=== PATIENT | female | born 1980 | race Caucasian/White ===

== ENCOUNTER 2021-07-11 14:43 | Outpatient (CLI) | payer OTHER ==
--- NOTE | 2021-07-14 07:01 | Ultrasound Report ---
Ultrasound the right groin, 07/11/2020 INDICATION: Palpable mass in the right groin. COMPARISON: None FINDINGS: In the right inguinal region, corresponding to the palpable area, there is an oval solid ma ss present measuring approximately 3.9 x 1.6 x 4.5 cm. There is some internal vascularity within the mass. There is no central echogenic hilum to suggest this is a normal lymph node. Overall appearance is nonspecific. IMPRESSION: 4.5 cm solid appearing mass noted in the right inguinal region, just slightly superior to the right testicle. The appearance is not suggestive of a benign lymph node. Further evaluation with pelvic CT, with IV contrast and oral contrast, if possible, is recommended. Signer Name: Lorna Mcdowell MD Signed: 07/14/2021 6:57 AM Workstation Name: [id number]
== END 2021-07-11 14:44 | disposition home or self-care (01) ==
LOC: US 14:43
PROVIDERS: ATTEND Internal Medicine
DX: R19.09 Other intra-abdominal and pelvic swelling, mass and lump (principal)

== ENCOUNTER 2021-08-25 08:53 | Outpatient (CLI) | payer OTHER ==
[2021-08-25 09:25] LABS: Blood Urea Nitrogen 15 mg/dL (7-17)
--- NOTE | 2021-08-25 10:47 | Cat Scan Report ---
CT PELVIS WITH CONTRAST HISTORY: Inguinal mass TECHNIQUE: Helical CT was performed following 100 cc of Omnipaque 300 intravenously. Oral contrast wa s also administered. Sagittal and coronal reformatted images. All CT scans at this location are perfo rmed using CT dose reduction for ALARA by means of automated exposure control. COMPARISON: None. FINDINGS: A moderate-sized indirect right inguinal hernia containing fat is identified which extends to the superior scrotal sac. No bowel loops are incorporated. No additional hernia. Visualized bowel loops in the pelvis and appendix are unremarkable. The bladder, distal ureters and p rostate gland are unremarkable. The vascular structures are patent. The bony structures are unremarka ble. IMPRESSION: Moderate sized right inguinal hernia containing fat as described. Signer Name: Jules Danielson Jr, MD Signed: 08/25/2021 10:42 AM Workstation Name: [id number]
== END 2021-08-25 08:54 | disposition home or self-care (01) ==
LOC: CT 08:53
PROVIDERS: ATTEND Psychiatry & Neurology Psychiatry
DX: K46.9 Unspecified abdominal hernia without obstruction or gangrene (principal)
CPT/HCPCS: 36415; 72193; 82565; 84520; Q9967